=== PATIENT | female | born 1960 | race American Indian/Alaskan Native ===

== ENCOUNTER 2018-01-06 09:13 | Day surgery (SDC) | payer BC ==
[2018-01-05 15:07] VITALS: BMI 27.2
[2018-01-06 09:58] VITALS: O2SAT 100
[2018-01-06] MEDS ORDERED: Propofol 10 mg/ml Inj (20 ML) ONE (09:59)
[2018-01-06 12:33] VITALS: TEMP 98
[2018-01-06 12:40] VITALS: BP 109/52; PULSE 64; RESP 18
== END 2018-01-06 12:15 | disposition home or self-care (01) ==
LOC: C.ENDO 09:13
PROVIDERS: ATTEND Internal Medicine Gastroenterology
DX: Z12.11 Encounter for screening for malignant neoplasm of colon (principal); K64.2 Third degree hemorrhoids; K57.90 Diverticulosis of intestine, part unspecified, without perforation or abscess without bleeding
CPT/HCPCS: 45378; J2704